=== PATIENT | female | born 1970 | race African-American/Black ===

== ENCOUNTER 2019-05-23 10:51 | Emergency (ER) | payer BC, OTHER ==
[~2019-05-23] VITALS: Ht 160 cm; Wt 65.8 kg
[~2019-05-23 10:51] MED LIST: ONDA4TAB8 PO
--- NOTE | 2019-05-23 11:15 | NUR ---
pt ambulating with steady gait. Daughter at bedside. A&O x4. c/o vomiting and "sinus" Headache. per pt ate chicken stir barros last night that could've caused vomiting. states having loose stools. denies dizziness. NELSON 3/10 on the pain scale. speech is clear and able to make needs known / follow commands. denies any distress.
[2019-05-23 11:20] LABS: *BILIRUBIN,URIN 1+ (NEGATIVE); *BLOOD, URINE NEGATIVE (NEGATIVE); *CLARITY,URINE CLEAR (CLEAR); *COLOR,URINE YELLOW (YELLOW); *KETONES,URINE 2+ (NEGATIVE); LEUKOCYTE ESTERASE ,URINE NEGATIVE (NEGATIVE); NITRITE, URINE NEGATIVE (NEGATIVE); UGLUCOSE NEGATIVE (NEGATIVE)
--- NOTE | 2019-05-23 11:24 | NUR ---
ERMD at bedside for MSE
[2019-05-23 11:27] LABS: *URINE HCG, QUAL NEGATIVE (NEGATIVE); BACTERIA,URINE FEW /HPF (NONE SEEN); MUCUS,URINE FEW /LPF (0-FEW); RBC,URINE 0-3 /HPF (0-3); SQUAMOUS EPITHELIAL CELL,UR FEW /HPF (NONE SEEN); WBC,URINE 0-3 /HPF (0-3)
[2019-05-23] MEDS ORDERED: ONDANSETRON 4 MG/2 ML VIAL IV ONE (11:30)
[2019-05-23] MEDS ORDERED: IV NORMAL SALINE 1000 ML BAG IV ONE ×2 (11:30→13:00)
[2019-05-23] MEDS ORDERED: ONDANSETRON 4 MG/2 ML VIAL ONE (11:42)
[2019-05-23 11:46] LABS: BASOPHILS % (AUTO) 0.6 % (0.0-2.0); EOSINOPHILS % (AUTO) 0.3 % (0.0-7.0); LYMPHOCYTES # (AUTO) 0.4 K/uL (20.0-40.0); LYMPHOCYTES % (AUTO) 10.4 % (20.5-51.5); MEAN CORPUSCULAR HGB CONC 33 g/dL (32.3-35.6); MONOCYTES # (AUTO) 0.2 K/uL (2.0-10.0); NEUTROPHILS # (AUTO) 3.3 K/uL (1.8-8.9); NEUTROPHILS % (AUTO) 82.7 % (38.5-71.5); PLATELET COUNT (AUTO) 331 K/uL (179-408); RED BLOOD CELL COUNT(AUTO) 4.51 MIL/uL (3.63-4.92)
[2019-05-23 11:55] LABS: CARBON DIOXIDE 29 mmol/L (21-32); CHLORIDE 106 mmol/L (98-107); CREATININE 0.7 mg/dL (0.6-1.3); GLUCOSE 111 mg/dL (74-106); POTASSIUM 3.7 mmol/L (3.5-5.1); UREA NITROGEN, BLOOD 10 mg/dL (7-18)
[2019-05-23 11:59] LABS: ALANINE AMINOTRANSFERASE 24 U/L (14-59); ALKALINE PHOSPHATASE 92 U/L (50-136); ASPARTATE AMINOTRANSFERASE 15 U/L (15-37); BILIRUBIN,DIRECT 0.3 mg/dL (0.0-0.2); BILIRUBIN,TOTAL 1.2 mg/dL (0.2-1.0); LIPASE 54 U/L (73-393); TOTAL PROTEIN, SERUM 7.4 g/dL (6.4-8.2)
[2019-05-23] MEDS ORDERED: KETOROLAC TROMETHAMINE 15 MG INJ IVP ONE (12:15)
[2019-05-23] MEDS ORDERED: METOCLOPRAMIDE HCL 10 MG/2 ML VIAL ONE (12:15)
[2019-05-23] MEDS ORDERED: METOCLOPRAMIDE HCL 10 MG/2 ML VIAL IV ONE (12:15)
[2019-05-23] MEDS ORDERED: KETOROLAC TROMETHAMINE 15 MG INJ ONE (12:19)
--- NOTE | 2019-05-23 13:30 | NUR ---
pt in bed sleeping but easily arousable. daughter at bedside. Breathing even and unlabored. NAD noted at this time
--- NOTE | 2019-05-23 14:24 | NUR ---
Pt able to tolorate PO intake. No c/o nausea/vomitting at this time.
--- NOTE | 2019-05-23 14:40 | NUR ---
IV removed. Catheter intact and site benign. Pressure and 4x4 gauze applied to site. No bleeding noted.
[2019-05-23 14:44] VITALS: BP 115/60
--- NOTE | 2019-05-23 14:45 | NUR ---
Patient discharged to home in stable conditon. Written and verbal after care instructions given. Patient verbalizes understanding of instructions.
== END 2019-05-23 14:46 | disposition home or self-care (01) ==
LOC: ER 10:51
DX: E86.0 Dehydration (principal); E03.9 Hypothyroidism, unspecified; Z79.899 Other long term (current) drug therapy
CPT/HCPCS: 36415; 80048; 80076; 81000; 81001; 83690; 84484; 84702; 84703; 85025; 96361; 96374; 96375; 99283; J1885; J2405; J2765; 70030-TC; A4663; J7030